=== PATIENT | female | born 1960 | race African-American/Black ===

== ENCOUNTER 2016-03-14 04:24 | Emergency (ER) | payer MEDICAID ==
[~2016-03-14] VITALS: Ht 180.3 cm; Wt 108.9 kg
[2016-03-14 06:20] LABS: Partial Thromboplastin Time 39.5 sec (22.64-33.71)
[2016-03-14 06:27] LABS: Basophils # (auto) 0.1 uL; Basophils % (auto) 1.9 % (0.0-2.0); Eosinophils # (auto) 0.2 uL; Eosinophils % (auto) 4.9 % (0.0-7.0); Hematocrit 39.2 % (36.0-46.0); Hemoglobin 12.5 g/dL (12.2-16.2); Lymphocytes # (auto) 2.8 uL; Lymphocytes % (auto) 53.9 % (10.0-50.0); Mean Corpuscular Hemoglobin 29.5 pg (28.0-32.0); Mean Corpuscular Hgb Conc. 31.8 g/dL (32.0-36.0); Mean Corpuscular Volume 92.6 fL (80.0-100.0); Mean Platelet Volume 9.6 fL (7.4-10.4); Monocytes # (auto) 0.4 uL; Monocytes % (auto) 8.1 % (0.0-12.0); Neutrophils # (auto) 1.5 uL; Neutrophils % (auto) 31.2 % (37.0-80.0); Platelet Count (auto) 233 10^3/uL (140-450); White Blood Cell 4.9 10^3/uL (4.4-10.8)
[2016-03-14 06:30] LABS: INR 3.22 (0.9-1.15); Prothrombin Time 33.2 sec (9.37-12.3)
[2016-03-14 06:39] LABS: Albumin 2.7 g/dL (3.4-5.0); BUN/Creatinine Ratio 10.6; Calcium 8.2 mg/dL (8.5-10.1)
[2016-03-14 06:42] LABS: Bilirubin, Total 0.2 mg/dL (0.2-1.0); Total Protein 7.4 g/dL (6.4-8.2)
[2016-03-14 07:08] LABS: Urine Bilirubin Negative (Negative); Urine Color Yellow (Yellow); Urine Glucose Normal (Normal); Urine Ketone Negative (Negative); Urine Nitrite Negative (Negative); Urine RBC 25 /hpf (0 - 4); Urine Squamous Epithelial Cell FEW /hpf (<5); Urine Urobilinogen Normal (Negative)
[2016-03-14 07:11] LABS: Urine Blood 2+ /uL (Negative)
[2016-03-14] MEDS ORDERED: ACETAMINOPHEN 325 MG TAB PO ONE (08:15)
[2016-03-14 09:15] LABS: INR 1.01 (0.9-1.15); Partial Thromboplastin Time 26.3 sec (22.64-33.71); Prothrombin Time 10.4 sec (9.37-12.3)
[2016-03-14 10:07] VITALS: BP 145/35
[2016-03-14 10:23] LABS: Fibrinogen 198.7 mg/dL (177-375)
== END 2016-03-14 10:51 | disposition home or self-care (01) ==
LOC: ER 04:27
DX: N93.9 Abnormal uterine and vaginal bleeding, unspecified (principal); D25.9 Leiomyoma of uterus, unspecified; E87.1 Hypo-osmolality and hyponatremia; E46 Unspecified protein-calorie malnutrition; I10 Essential (primary) hypertension; Z98.51 Tubal ligation status; Z88.6 Allergy status to analgesic agent
CPT/HCPCS: 36415; 76856; 80053; 81001; 81025; 85025; 85362; 85379; 85384; 85610; 85730

== ENCOUNTER 2016-07-18 21:52 | Day surgery (SDC) | payer MEDICAID ==
[~2016-07-18] VITALS: Ht 180.3 cm; Wt 108.9 kg
[2016-07-18 23:04] LABS: Basophils # (auto) 0.1 uL; Eosinophils # (auto) 0.2 uL; Eosinophils % (auto) 3.8 % (0.0-7.0); Hemoglobin 11.9 g/dL (12.2-16.2); Lymphocytes % (auto) 50.1 % (10.0-50.0); Mean Corpuscular Hemoglobin 29.9 pg (28.0-32.0); Mean Corpuscular Hgb Conc. 33.1 g/dL (32.0-36.0); Mean Corpuscular Volume 90.2 fL (80.0-100.0); Mean Platelet Volume 9.9 fL (7.4-10.4); Monocytes # (auto) 0.6 uL; Neutrophils # (auto) 2.1 uL; Neutrophils % (auto) 35.1 % (37.0-80.0); Platelet Count (auto) 293 10^3/uL (140-450); Red Cell Distribution Width 14.4 % (11.6-16.0); SUSPECT VIEW TRANSMISSION; White Blood Cell 5.9 10^3/uL (4.4-10.8)
[2016-07-18 23:25] LABS: Albumin 3.4 g/dL (3.4-5.0); Anion Gap 8 (5-15); Aspartate Aminotransferase 16 U/L (15-37); BUN/Creatinine Ratio 10.9; Blood Urea Nitrogen 11 mg/dL (7-18); Calcium 8.5 mg/dL (8.5-10.1); Carbon Dioxide 26 mmol/L (21-32); Chloride 106 mmol/L (98-107); GFR African American 73 mL/min; GFR Non-African American 60 mL/min; Glucose 108 mg/dL (74-106); Magnesium 2.1 mg/dL (1.6-2.6); Potassium 4.4 mmol/L (3.5-5.1); Sodium 140 mmol/L (136-145)
[2016-07-18 23:28] LABS: Alkaline Phosphatase 99 U/L (45-117); Bilirubin, Total 0.2 mg/dL (0.2-1.0); Total Protein 7.3 g/dL (6.4-8.2)
[2016-07-19] MEDS ORDERED: SODIUM CHLORIDE 0.9% 1,000 ML IVB ONE (06:32)
[2016-07-19] MEDS ORDERED: MORPHINE SULFATE 4 MG/ML SYRG IV ONE (06:45)
[2016-07-19] MEDS ORDERED: ONDANSETRON HCL 4 MG/2 ML VIAL IV ONE ×2 (06:45→10:15)
[2016-07-19 08:00] LABS: INR 0.97 (0.9-1.15); Prothrombin Time 10.6 sec (9.37-12.3)
[2016-07-19] MEDS ORDERED: LACTATED RINGER'S 1,000 ML IV ONE (09:15)
[2016-07-19] MEDS ORDERED: ceFAZolin 1GM/50ML D5W 50 ML IV ONE (10:12)
[2016-07-19] MEDS ORDERED: hydrALAZINE HCL 20 MG/ML VL IV PRN (10:15)
[2016-07-19] MEDS ORDERED: LABETALOL HCL 5 MG/ML 4ML SYRINGE IV PRN (10:15)
[2016-07-19] MEDS ORDERED: MIDAZOLAM HCL 1MG/1ML-2 ML VIAL IV PRN (10:15)
[2016-07-19] MEDS ORDERED: MORPHINE SULF INJ 2 MG/ML SYRINGE 1ML IV PRN (10:15)
[2016-07-19] MEDS ORDERED: KETOROLAC TROMETH 30 MG/ML 1ML VIAL IV ONE (10:15)
[2016-07-19] MEDS ORDERED: ePHEDrine SULFATE 50 MG/ML AMP IV PRN (10:15)
[2016-07-19] MEDS ORDERED: HYDROmorphone HCL 2 MG/ML VL IV PRN (10:15)
[2016-07-19] MEDS ORDERED: MEPERIDINE HCL (50 MG/ML) 1 ML VIAL ONE (10:23)
[2016-07-19] MEDS ORDERED: fentaNYL CITRATE 100 MCG/2 ML VL ONE (10:23)
[2016-07-19] MEDS ORDERED: MIDAZOLAM HCL 1MG/1ML-2 ML VIAL ONE (10:23)
[2016-07-19] MEDS ORDERED: DEXAMETHASONE SOD PHOS 10MG/1ML VIAL INJ ONE (10:31)
[2016-07-19] MEDS ORDERED: PROPOFOL 10 MG/ML 20 ML IV ONE (10:31)
[2016-07-19] MEDS ORDERED: METOCLOPRAMIDE HCL 5MG/ml INJ 2ml VIAL IV ONE (10:31)
[2016-07-19] MEDS ORDERED: LACTATED RINGER'S 1,000 ML IV SCH (11:25)
[2016-07-19] MEDS ORDERED: ONDANSETRON HCL 4 MG/2 ML VIAL IV PRN (11:30)
[2016-07-19 12:16] VITALS: BP 155/61
== END 2016-07-19 12:16 | disposition home or self-care (01) ==
LOC: ER 22:22 → SUR 22:23
PROVIDERS: ATTEND Obstetrics & Gynecology
DX: N92.0 Excessive and frequent menstruation with regular cycle (principal); N93.9 Abnormal uterine and vaginal bleeding, unspecified; E11.9 Type 2 diabetes mellitus without complications; I10 Essential (primary) hypertension; Z12.4 Encounter for screening for malignant neoplasm of cervix
CPT/HCPCS: 58558; J2175; J2270; J2765; J3010; 36415; 71010; 76830; 76856; 80053; 82962; 83735; 84484; 84702; 85025; 85610; 85730; 86850; 86900; 86901; 93005; 94761; 96361; 96365; 96366; 96375; J0690; J1100; J2250; J2405; J2704